=== PATIENT | male | born 1995 | race Caucasian/White ===

== ENCOUNTER 2017-08-16 07:14 | Emergency (ER) | payer OTHER ==
--- NOTE | 2017-08-16 08:18 | ER Report ---
History and Physical Time Seen By MD: 07:10 Hx. of Stated Complaint: pt was feeding wire into pipes yesterday, and felt instant sharp pain in his right shoulder. pt states he is not having any pain right now, but some discomfort when he puts upwards pressure on his right hand. HPI/ROS 21-year-old male with no known medical problems and no previous shoulder injury presents to the emergency department with pain in his right shoulder. He works as an journeyman electrician pv installer. States he started to feel some pain in his right shoulder a few days ago. Yesterday he was feeding wire into conduit that was over his head. He was pushing a wire upwards. He started to experience a sharp pinching type pain in his right shoulder. The pain subsided when he stopped with the movement. He still has episodes of similar pain when he moves his right shoulder today. He did not fall or have any other blunt trauma to his right shoulder. He reports full range of motion of his shoulder however with some movements he does experience the same pain. Remainder of the 14 system rev: Yes Allergies: Coded Allergies: No Known Drug Allergies (Unverified , 08/16/17) Home Meds Active Scripts Ketorolac Tromethamine (KETOROLAC TROMETHAMINE) 10 Mg Tab, 10 MG PO Q6H Y for PAIN, #15 TAB 0 Refills Prov:JESSI HUITRON MD 08/16/17 Reviewed Nurses Notes: Yes Hx Smoking: No Hx Substance Use Disorder: No Hx Alcohol Use: Yes (rare) Constitutional Vital Sign - Last 24 Hours 08/16/17 07:18 Temp 97.6 Pulse 63 Resp 16 B/P (MAP) 144/79 Pulse Ox 96 O2 Delivery Room Air Physical Exam General Appearance: The patient is alert, has no immediate need for airway protection and no current signs of toxicity. Eyes: Pupils equal and round no injection. Respiratory: Chest is non tender, lungs are clear to auscultation. Cardiac: regular rate and rhythm Musculoskeletal: TTP of the humeral head, FROM, n/v in tact. Normal strength/ sensation throughout Extremities have full range of motion and are non tender. Skin: No rashes or lesions. DIFFERENTIAL DIAGNOSIS: After history and physical exam differential diagnosis was considered for shoulder dislocation, shoulder strain, ligament or tendon injury, bursitis Medical Decision Making ED Course/Re-evaluation ED Course Histoy and physical exam c/w right shoulder bursitis. Given Toradol in the ED. Will give NSAIDs for pain relief and light duty for a week. Decision to Disposition Date: Aug 16, 2017 Decision to Disposition Time: 08:40 Depart Departure Latest Vital Signs Vital Signs Date Time Temp Pulse Resp B/P (MAP) Pulse Ox O2 Delivery O2 Flow Rate FiO2 08/16/17 07:18 97.6 63 16 144/79 96 Room Air Impression: Primary Impression: Bursitis of shoulder, right Condition: Improved Disposition: HOME OR SELF-CARE New Scripts Ketorolac Tromethamine (KETOROLAC TROMETHAMINE) 10 Mg Tab 10 MG PO Q6H Y for PAIN, #15 TAB 0 Refills Prov: JESSI HUITRON MD 08/16/17 Patient Instructions: Shoulder Bursitis (ED) Additional Instructions: You should be on light duty until Tuesday, August 22. No lifting greater than 10 pounds and no work that requires repetitive movement of the right shoulder. JESSI HUITRON MD Aug 16, 2017 08:18
[2017-08-16] MEDS ORDERED: KETOROLAC 60 MG/2 ML VIAL IM ONE (08:20)
[2017-08-16] MEDS ORDERED: KET10 PO (08:42)
[2017-08-16 08:44] VITALS: BP 107/73
== END 2017-08-16 08:53 | disposition home or self-care (01) ==
LOC: ER 07:30
DX: M75.51 Bursitis of right shoulder (principal)
CPT/HCPCS: 96372; 99283; J1885

== ENCOUNTER → 2018-05-23 | Outpatient (CLI) | payer OTHER ==
[~2018-05-23] MED LIST: FLUT16SP19 NS; KET10 PO; MECL25TA9 PO; PROM-110 PO
== END ==
LOC: AUD 14:30
PROVIDERS: ATTEND Otolaryngology
DX: Z01.10 Encounter for examination of ears and hearing without abnormal findings (principal)
CPT/HCPCS: 92557; 92570

== ENCOUNTER → 2018-05-31 | Outpatient (CLI) | payer OTHER ==
[~2018-05-31] MED LIST changes: +GADOBENATE 529MG/1ML 15ML VIAL IVP ONE
--- NOTE | 2018-05-31 14:02 | RADIOLOGY IMAGING REPORT ---
FACILITY: [facility] - [place], [place] PATIENT NAME: Sonido Ceballos : 1995 MR: [id number] V: [id number] EXAM DATE: ORDERING PHYSICIAN: AB ALVA TECHNOLOGIST: Location: [facility] Patient: Sonido Ceballos : 1995 Visit/Account:[id number] Date of Sevice: 05/31/2018 EXAMINATION: Pre MRI orbits radiograph, one view. HISTORY: Rule out metal foreign body. FINDINGS: No radiopaque intraorbital foreign bodies are identified. The paranasal sinuses are unremarkable. A few metal fillings are present in the teeth. IMPRESSION: No evidence of radiopaque intraorbital foreign body. Report Dictated By: Man Seals MD at 05/31/2018 1:57 PM Report E-Signed By: Man Seals MD at 05/31/2018 1:58 PM WSN:[id number]
--- NOTE | 2018-05-31 15:50 | RADIOLOGY IMAGING REPORT ---
[place] [facility] [place] Sonido Ceballos : 1995 MR: [id number] V: [id number] EXAM DATE: ORDERING PHYSICIAN: AB ALVA TECHNOLOGIST: Location: [facility] - [place] Patient: Sonido Ceballos : 1995 Visit/Account:[id number] Date of Sevice: 05/31/2018 Study: MRI of the brain without and with gadolinium contrast. Indication: Imbalance, vertigo, migraine headache Comparison study: None Contrast used: 15 mL MultiHance gadolinium contrast Technique: Multiplanar MRI sequences were obtained through the brain before and after the administrat ion of gadolinium contrast. The examination demonstrates no evidence of acute intracranial hemorrhage. There is no evidence of ex tra-axial collection or hydrocephalus. There is no abnormal signal identified within the brain parenchyma. The cerebellar tonsils are low-lying but do not make the criteria for Chiari I malformation. The mor phology of the cerebellar tonsils is unremarkable. The pituitary gland is unremarkable in appearance. There is no evidence of abnormality of the pineal gland. A diffusion-weighted sequence was performed and demonstrates no evidence of active ischemia. There is no evidence of active infarct The orbits are unremarkable. The paranasal sinuses are unremarkable Following the administration of gadolinium contrast, there is no abnormal intracranial contrast enhan cement. IMPRESSION:Unremarkable MRI of the brain without and with intravenous contrast. Report Dictated By: Festus Hester at 05/31/2018 3:44 PM Report E-Signed By: Festus Hester at 05/31/2018 3:46 PM WSN:[id number]
== END ==
LOC: MRI 00:31
PROVIDERS: ATTEND Physician Assistant
DX: G43.909 Migraine, unspecified, not intractable, without status migrainosus (principal); R26.89 Other abnormalities of gait and mobility
CPT/HCPCS: 70030; 70553; A9577